=== PATIENT | male | born 2000 | race Hispanic/Latino ===

== ENCOUNTER 2020-04-10 17:37 | Emergency (ER) | payer OTHER ==
[~2020-04-10] VITALS: Ht 172.7 cm; Wt 85.7 kg
[2020-04-10] MEDS ORDERED: LORazepam 2 MG/ML VIAL IM ONE (18:30)
[2020-04-10] MEDS ORDERED: HALOPERIDOL 5MG/ML VIAL (J1630 PER 1) IM ONE (18:30)
[2020-04-10 20:16] LABS: HEMATOCRIT 46.5 % (42.0-52.0); HEMOGLOBIN 15.2 g/dl (13.5-17.5); MEAN CORPUSCULAR HGB CONC 32.7 g/dl (32.0-36.5); MEAN CORPUSCULAR VOLUME 91.9 fl (80.0-96.0); PLATELET COUNT, AUTOMATED 206 10^3/uL (150-450); RED BLOOD COUNT 5.06 10^6/uL (4.30-6.10)
[2020-04-10 21:04] LABS: ACETAMINOPHEN LEVEL < 2.0 UG/ML (10.0-30.0); ALBUMIN 4.4 GM/DL (3.2-5.2); ALT/SGPT 21 U/L (12-78); BILIRUBIN,DIRECT 0.3 MG/DL (0.0-0.2); BILIRUBIN,TOTAL 1.1 MG/DL (0.2-1.0); BLOOD UREA NITROGEN 14 MG/DL (7-18); CALCIUM LEVEL 9.2 MG/DL (8.5-10.1); CARBON DIOXIDE LEVEL 27 MEQ/L (21-32); CHLORIDE LEVEL 107 MEQ/L (98-107); CREATININE FOR GFR 1.03 MG/DL (0.70-1.30); ETHYL ALCOHOL (ETHANOL) < 0.003 % (0.000-0.010); GLUCOSE, FASTING 108 MG/DL (70-100); SALICYLATE LEVEL < 1.7 MG/DL (5.0-30.0); SODIUM LEVEL 142 MEQ/L (136-145); TOTAL PROTEIN 7.1 GM/DL (6.4-8.2)
[2020-04-10 22:20] LABS: AMPHETAMINES LEVEL URINE NEGATIVE (NEGATIVE); BARBITURATES URINE NEGATIVE (NEGATIVE); BENZODIAZEPINES URINE NEGATIVE (NEGATIVE); CANNABINOIDS URINE NEGATIVE (NEGATIVE); COCAINE METABOLITE URINE NEGATIVE (NEGATIVE); METHADONE URINE NEGATIVE (NEGATIVE); OPIATES URINE NEGATIVE (NEGATIVE); PHENCYCLIDINE URINE NEGATIVE (NEGATIVE)
[2020-04-11 02:53] VITALS: BP 139/92
== END 2020-04-11 03:01 | disposition home or self-care (01) ==
LOC: M ED 17:37
DX: F43.0 Acute stress reaction (principal); F33.9 Major depressive disorder, recurrent, unspecified
CPT/HCPCS: 80048; 80076; 80307; 84443; 85027; 96372; 99285; G0480; J1630; J2060

== ENCOUNTER 2020-06-14 16:45 | Inpatient (IN) | payer OTHER ==
[~2020-06-14] VITALS: Ht 175.3 cm; Wt 74.3 kg
[2020-06-14 18:02] LABS: HEMATOCRIT 45.2 % (42.0-52.0); HEMOGLOBIN 15.2 g/dl (13.5-17.5); MEAN CORPUSCULAR HEMOGLOBIN 30.5 pg (27.0-33.0); MEAN CORPUSCULAR HGB CONC 33.6 g/dl (32.0-36.5); MEAN CORPUSCULAR VOLUME 90.8 fl (80.0-96.0); PLATELET COUNT, AUTOMATED 237 10^3/uL (150-450); RED BLOOD COUNT 4.98 10^6/uL (4.30-6.10); WHITE BLOOD COUNT 7.7 10^3/uL (4.0-10.0)
[2020-06-14 18:26] LABS: ACETAMINOPHEN LEVEL < 2.0 UG/ML (10.0-30.0); ALBUMIN 4.4 GM/DL (3.2-5.2); ALT/SGPT 20 U/L (12-78); BILIRUBIN,DIRECT 0.3 MG/DL (0.0-0.2); BILIRUBIN,TOTAL 0.9 MG/DL (0.2-1.0); BLOOD UREA NITROGEN 11 MG/DL (7-18); CARBON DIOXIDE LEVEL 27 MEQ/L (21-32); CHLORIDE LEVEL 108 MEQ/L (98-107); CREATININE FOR GFR 0.74 MG/DL (0.70-1.30); ETHYL ALCOHOL (ETHANOL) < 0.003 % (0.000-0.010); GLOMERULAR FILTRATION RATE > 60.0 (>60); GLUCOSE, FASTING 131 MG/DL (70-100); SALICYLATE LEVEL < 1.7 MG/DL (5.0-30.0); SODIUM LEVEL 142 MEQ/L (136-145); TOTAL PROTEIN 7.2 GM/DL (6.4-8.2)
[2020-06-14 18:37] LABS: AMPHETAMINES LEVEL URINE NEGATIVE (NEGATIVE); BARBITURATES URINE NEGATIVE (NEGATIVE); BENZODIAZEPINES URINE NEGATIVE (NEGATIVE); CANNABINOIDS URINE NEGATIVE (NEGATIVE); COCAINE METABOLITE URINE NEGATIVE (NEGATIVE); METHADONE URINE NEGATIVE (NEGATIVE); OPIATES URINE NEGATIVE (NEGATIVE); PHENCYCLIDINE URINE NEGATIVE (NEGATIVE)
[2020-06-14] MEDS ORDERED: MAALOX 30 ML SUSP *UDC PO PRN (21:30)
[2020-06-14] MEDS ORDERED: MOM 30ML SUSPENSION UDC PO PRN (21:30)
[2020-06-14] MEDS ORDERED: traZODone 50 MG TAB PO PRN (21:30)
[2020-06-14] MEDS ORDERED: ACETAMINOPHEN TAB 650MG DOSE (2X325MG) PO PRN (21:30)
[2020-06-14] MEDS ORDERED: OLANZapine ORAL DISINTEGRATING TAB 5MG PO PRN (22:50)
[2020-06-14 22:54] LABS: RSV AMPLIFICATION NEGATIVE (NEGATIVE)
[2020-06-14 23:17] VITALS: BP 119/70
--- NOTE | 2020-06-15 08:50 | MHHPEPDOC ---
General Date Of Admission: Jun 15, 2020 Legal Status: 9.39 Chief Complaint Patient states she does not know why he is here " History of Present Illness HISTORY OF THE PRESENT ILLNESS: Patient is a 20 -year-old , male * Per Cpt. Ashwood- [phone](pt. Co. Commander)reports that pt. has been decompensating, behaviors have been coninueing to escalate and that they are trying to get pt the help that he needs. She reports that pt. has been religiously preoccupied, stating to KAREN "I don't work for you,I work for God." and "I can't let the devil take what I've earned." Pt. was on quarentine until 4 days ago, after he was on leave,visiting family(grandfathers ) in [place]. During the last 4 days, pt has refused to go to work, refusing to listen to orders. Pt. stated"I forgive you" and when asked for what he replied,"You know what you did." KAREN reports pt. has been accepted into the [facility] for out-processing due to the MH issues. KAREN reports that pt sister had concerns regarding pt thoughts and behaviors when he was on leave, visiting her. Sister told KAREN that pt was religiously preoccupied and at one point pushed her when he was talking about God. Pt. roommate in [place] has decided to stay with a friend somewhere because of pt. bizzare talk. KAREN reports that pt. pschotic symptoms had started end of 2019 but have been escalating and there is concern for others safety. * Pt. reports he does not know why he was brought to ER. He is A+O. He denies SI/HI. He denies AH/VH. He is pleasant,cooperative. He does appear guarded in his answers, mainly yes and no answers, does not offer extra insight or answers to why he could have been brought to ER. He reports he has no disrespect for anyone, has had no issues at work and states he has been going to work and completing his duties as he is asked to do. 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 He denies any MH issues. Denies depression/anxiety. "Out of nowhere they came and took me" this 20-year-old single male, lives at [facility]. He has been in the army for 2-1/2-3 years. He was born in [place], his father and mother are alive and living in [place] and he has one sister. His medical history is negative. His surgical history is negative. His neurological history is negative. He denies alcohol use. He denies drug use. His legal history is negative. He denies any abuse. He has never been hospitalized psychiatrically. He said no. Psychiatric outpatient care. He denies any serious problems in his childhood. For leisure. He likes to play basketball and video games. He states my complaint and was following me for no reason.". They called the police. Recently, his grandfather had and he was on an emergency leave for 32 days. He has been accepted in the [facility] for out process. He presently denies hallucinations, delusions, obsessions, compulsions or phobias Psychiatric Review of Systems Depression (2 or more weeks): denies Eve (4 or more days of): denies Psychosis: delusions PTSD: denies Anxiety: situational anxiety Past Psychiatric History Previous Psychiatric Diagnosis: None. Previous Psychiatric Admissions:. None. Suicide Attempts:. None. Psychiatric Follow-up:. None. Psychiatric medications:. None. Past Medical History Head Injury: No Seizures: No Hospitalizations: No Surgeries: No Family Medical/Psychiatric HX Psychiatric Disorders: No Addiction: No Suicide Attemps/Completions: No Addiction History denies Social History Childhood: Denies problems. Abuse/Trauma:. Denies abuse. [place] Education: High school. 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 Social Support: Parents in [place]. Legal:, None. Marital:, Single. Mental Status Examination General Appearance: well groomed Build: average Demeanor: average Eye Contact: average Activity: average Behavior: cooperative Speech: clear Mood: euthymic Affect: full Thought Process: logical/linear Thought Content (Delusions): bizarre, denies SI, HI, AVH, delusions Thought Content (Other): guarded Thought Content (Aggressive): none reported Perception (Hallucinations): none reported Cognition (Impairment of): none reported Cognition(Intelligence Est.): average Oriented: Awake, Alert, Oriented times three Insight: poor Judgment: Poor Psychosis: Denies Diagnoses Rule Out Acute Psychotic Episode A-FIB/CHADSVASC A-FIB History Current/History of A-Fib/PAF?: No Age/Risk Factor Scoring CHADSVASC: CHADSVASC Response (Comments) Value Age Risk Factor Age < 65 years old 0 Gender Risk Factor Male 0 Hx of CHF No 0 Hx of HTN No 0 Hx of Stroke/TIA/or VTE No 0 Hx of Diabetes No 0 Hx of Vascular Disease No 0 Total 0 Treatment Treatment ordered: NONE Initial Treatment Plan 1. Patient was admitted on a [9.39] status. 2. Complete history was obtained. 3. With patients permission, family will be contacted and database will be expanded. 4. Patients medication regimen will be reviewed and changed accordingly. 5. Patient will be provided with protected environment. 6. Patient will be treated with individual, group, and milieu therapies. 7. Patient will receive supportive psych-education. 8. Discharge planning will commence immediately. 9. Outpatient follow-up treatment will be strongly recommended. 10. The initial treatment plan will focus initially on: * Depression. * Risk for suicide. ESTIMATED LENGTH OF STAY: - DAYS. TIME SPENT COUNSELING AND COORDINATING INITIAL CARE: minutes. N/A-No Antipsychotics Vital Signs Vital Signs Date Time Temp Pulse Resp B/P (MAP) Pulse Ox O2 Delivery O2 Flow Rate FiO2 06/14/20 23:17 97.7 64 18 119/70 (86) 100 Room Air Laboratory Data 24H Labs Laboratory Tests 2 06/14/20 17:33: Nucleated Red Blood Cells % (auto) 0.0, Anion Gap 7L, Glomerular Filtration Rate > 60.0, Calcium Level 9.0, Total Bilirubin 0.9, Direct Bilirubin 0.3H, Aspartate Amino Transf (AST/SGOT) 10, Alanine Aminotransferase (ALT/SGPT) 20, Alkaline Phosphatase 103, Total Protein 7.2, Albumin 4.4, Albumin/Globulin Ratio 1.6, Thyroid Stimulating Hormone (TSH) 0.650, Salicylates Level < 1.7L, Acetaminophen Level < 2.0L, Ethyl Alcohol Level < 0.003 06/14/20 18:02: Urine Opiates Screen NEGATIVE, Urine Methadone Screen NEGATIVE, Urine Barbiturates Screen NEGATIVE, Urine Phencyclidine Screen NEGATIVE, Urine Amphetamines Screen NEGATIVE, Urine Benzodiazepines Screen NEGATIVE, Urine Cocaine Metabolite Screen NEGATIVE, Urine Cannabinoids Screen NEGATIVE 06/14/20 21:23: Coronavirus (COVID-19)(PCR) NEGATIVE, Influenza Type A (RT-PCR) NEGATIVE, Influenza Type B (RT-PCR) NEGATIVE, Respiratory Syncytial Virus (PCR) NEGATIVE CBC/BMP Laboratory Tests 06/14/20 17:33 Medications No Active Prescriptions or Reported Meds Allergies Coded Allergies: No Known Allergies (Verified Allergy, Unknown, 06/14/20) DOROTHEA LEÓN MD Jun 15, 2020 08:50
[2020-06-15] MEDS: NICOTINE 21MG/24HR 1 EA TRANSDERMAL TD SCH (09:00)
--- NOTE | 2020-06-15 15:52 | REPVR ---
PROCEDURE INFORMATION: Exam: MR Head Without Contrast Exam date and time: 06/15/2020 2:42 PM Age: 20 years old Clinical indication: Altered mental status/memory loss; Other: Sudden unexplained change in mental status TECHNIQUE: Imaging protocol: MR of the head without contrast. COMPARISON: No relevant prior studies available. FINDINGS: Brain: No acute infarct or postictal signal changes identified on the diffusion-weighted imaging. No evidence of brain parenchymal edema or intracranial mass effect. No significant white matter disease. No parenchymal hemorrhage. Cerebral ventricles: Normal. No ventriculomegaly. Bones/joints: Unremarkable. Paranasal sinuses: Retention cysts or polyps in the inferior maxillary sinuses. Trace ethmoid mucosal thickening. No air-fluid levels. Mastoid air cells: Normal as visualized. No mastoid effusion. Orbital cavity: Unremarkable. Soft tissues: Unremarkable. IMPRESSION: No acute intracranial abnormality. Electronically signed by: Gaby Parson On 06/15/2020 15:51:53 PM
[2020-06-15 16:44] VITALS: BP 109/56
[2020-06-15] MEDS: PALIPERIDONE 3 MG ER TAB (INVEGA) PO SCH (21:19)
[2020-06-16 06:46] VITALS: BP 119/57
--- NOTE | 2020-06-16 06:49 | HPEPDOC ---
General Date of Admission Jun 14, 2020 at 22:03 Date of Service: Jun 16, 2020 Chief Complaint The patient is a 20-year-old male admitted with a reason for visit of Unspecified Psychotic Do. 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 I am seeing the patietn for medical history and physical. Patient does not offer any complaints today. He did have an MRI brain yesterday for sudden memory loss and altered mental status. today he is alert oriented and gives appropriate history. 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 Surgical History None Family History Significant Family History: No pertinent family hx discussed with the patient Social History * Smoker: other (vape sometimes) Alcohol: occationally (1-2 times/ month) Drugs: denies A-FIB/CHADSVASC A-FIB History Current/History of A-Fib/PAF?: No Review of Systems Constitutional: Denies: Chills, Fever, Night Sweats Eyes: Denies: Pain, Vision change ENT: Denies: Head Aches, Ear Pain, Dysphagia Skin: Denies: Rash, Lesions, Breakdown Pulmonary: Denies: Dyspnea, Cough Cardiovascular: Denies: Chest Pain, Palpitations, Orthopnea, Paroxysmal Noc. Dyspnea, Lt Headedness Gastrointestinal: Denies: Nausea, Vomiting, Abdominal Pain, Diarrhea Genitourinary: Denies: Dysuria, Frequency, Incontinence, Retention Hematologic: Denies: Bruising, Bleeding Excessively Musculoskeletal: Denies: Neck Pain, Back Pain, Joint Pain, Muscle Pain, Spasms Neurological: Denies: Weakness, Numbness, Change in speech, Confusion Psych: Reports: Mood Normal Physical Examination General Exam: Positive: Alert, Cooperative, No Acute Distress Eye Exam: Positive: PERRLA, Conjunctiva & lids normal, EOMI; Negative: Sclera icteric ENT Exam: Positive: Atraumatic, Mucous membr. 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 I am seeing the patient for medical history and physical. Psychosis / depression as per psychiatry No active medical issues at this time. 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 Plan / VTE VTE Prophylaxis Ordered?: No (freely ambulatory) LYNDA HAYDEN MD Jun 16, 2020 06:49
[2020-06-16] MEDS: NICOTINE 21MG/24HR 1 EA TRANSDERMAL TD SCH (08:45)
[2020-06-16 17:51] VITALS: BP 100/60
[2020-06-16] MEDS: PALIPERIDONE 3 MG ER TAB (INVEGA) PO SCH (21:54)
[2020-06-17 06:49] VITALS: BP 101/51
[2020-06-17] MEDS: NICOTINE 21MG/24HR 1 EA TRANSDERMAL TD SCH (09:00)
--- NOTE | 2020-06-17 11:09 | MHIPN ---
[facility] PROGRESS NOTE DATE: 06/16/2020 The patient today states that he is doing good. He is still not sure why he is in the hospital. I tried to point out that the report said that he was not doing his job and the patient was noted to be very religiously preoccupied, but he is guarded about this at this point. MENTAL STATUS EXAMINATION: He is alert and oriented times three. Eye contact is good. There is no formal thought disorder noted. He says his mood is good. His affect is flat. He is denying everything but it appears that he is having grandiose delusions. He denies suicidal or homicidal ideation. Concentration fair. Memory intact. Insight and judgment is poor. DIAGNOSIS: Other specified psychotic disorder. TREATMENT PLAN: At this point, we will continue to monitor the patient for continued resolution of psychotic symptoms and continue to titrate his medications as indicated. It looks like his Prozac was increased.
[2020-06-17 17:28] VITALS: BP 129/65
[2020-06-17] MEDS: PALIPERIDONE 3 MG ER TAB (INVEGA) PO SCH (21:01)
[2020-06-18 06:34] VITALS: BP 100/64
[2020-06-18] MEDS: NICOTINE 21MG/24HR 1 EA TRANSDERMAL TD SCH (09:00)
[2020-06-18 16:38] VITALS: BP 128/61
[2020-06-18] MEDS: PALIPERIDONE 3 MG ER TAB (INVEGA) PO SCH (20:57)
[2020-06-19 06:29] VITALS: BP 108/51
[2020-06-19] MEDS: NICOTINE 21MG/24HR 1 EA TRANSDERMAL TD SCH (09:00)
--- NOTE | 2020-06-19 09:50 | MHIPN ---
PROGRESS NOTE DATE: 06/18/2020 SUBJECTIVE: I am still depressed and I've been not doing well for the last six months. 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 He continues to have some agitation and currently depressed. MENTAL STATUS EXAMINATION: Well groomed. Cooperative. Made good eye contact. Speech is somewhat guarded. Affect is constricted. Mood is depressed. Thought process linear, goal directed. Thought content; denies any delusions, however, he is guarded. Denied any hallucinations. Currently denies any suicidal or homicidal thoughts. His insight and judgment are poor. 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 Vital signs: Temperature 98.3, pulse 54, respiratory rate 16, blood pressure 128/61. Labs: CBC within normal limits. CMP within normal limits. Glucose is slightly higher. ASSESSMENT: Patient continues to be depressed. PLAN: Continue current medications. ESTIMATED LENGTH OF STAY: 4 to 5 days.
[2020-06-19 16:35] VITALS: BP 132/59
--- NOTE | 2020-06-19 17:10 | MHIPN ---
[facility] PROGRESS NOTE DATE: 06/17/2020 The patient tells me, "I'm doing very well." He says that he slept good last night. He told me that he is writing down his goals. When I asked him what specific goals, he said "educational goals." He still has no insight about the events prior to admission and cannot understand why he is in the hospital at all. MENTAL STATUS EXAMINATION: This patient is alert and oriented times three. Eye contact is fair. Psychomotor activity is normal. The patient is guarded. There is no formal thought disorder. He says his mood is good. His affect is appropriate to mood. He seems to be acutely psychotic. He is denying suicidal or homicidal ideations. Concentration is fair. Memory intact. Insight and judgment poor. DIAGNOSIS: Unspecified psychotic disorder. TREATMENT PLAN: We will continue to monitor the patient for his psychotic symptoms and resolution of these symptoms, and we will titrate medication as indicated.
[2020-06-19] MEDS: PALIPERIDONE 3 MG ER TAB (INVEGA) PO SCH (21:16)
--- NOTE | 2020-06-19 22:33 | MHIPN ---
PROGRESS NOTE DATE: 06/19/2020 SUBJECTIVE: I'm feeling fine. I'm getting good sleep. I don't hear voices. OBJECTIVE: He is a 20-year-old male from [place], who was admitted because of auditory hallucinations and bizarre behavior. Currently patient is doing well. His sleep and appetite are good. Denies any hallucinations. MENTAL STATUS EXAMINATION: Appearance: Casually dressed, cooperative. Made good eye contact. Mood: Euthymic. Affect: Full range. Speech: Rate, rhythm, volume are good. Thought process: Linear, goal directed. Thought content: Denied any suicidal or homicidal ideas. Insight and judgment are fair. Alert and oriented to time, place and person. Memory; remote, recent and immediate are good. Vital Signs: Temperature 97.0, pulse 56, respiratory rate 18, blood pressure 132/59, pulse oximetry 98%. Labs: CBC within normal limits. CMP within normal limits. Toxicology: Negative. DIAGNOSIS: Psychotic disorder NOS. PLAN: Continue current medications. Discharge tomorrow. TIME SPENT ON EVALUATION: 25 minutes.
[2020-06-20 06:37] VITALS: BP 117/56
[2020-06-20] MEDS: NICOTINE 21MG/24HR 1 EA TRANSDERMAL TD SCH (08:05)
[2020-06-20] MEDS ORDERED: PALI1TAB2 PO (12:01)
[2020-06-20] MEDS ORDERED: TRAZ-252 PO (12:01)
--- NOTE | 2020-06-20 13:01 | MHDS ---
[facility] DISCHARGE SUMMARY DATE OF ADMISSION: 06/14/2020 DATE OF DISCHARGE: 06/20/2020 DIAGNOSIS: Psychotic disorder, unspecified. IDENTIFYING DATA: He is a 20-year-old male from [place], was admitted because of auditory hallucination and bizarre behavior with some alevism preoccupation. For details of history of present illness, past psychiatric history, past medical history, substance abuse history, personal history, please refer to the initial evaluation. COURSE IN THE HOSPITAL: Patient initially was behaving bizarre, staying in his room, with increase in religiosity. Patient was placed on paliperidone and he was also provided with individual, group and milieu therapy. Patient made a gradual recover. His psychosis resolved and he started attending groups. He slept better, denied any side effects from the medications, denied any suicidal or homicidal ideas. He was stable at the time of discharge. MENTAL STATUS EXAMINATION: Casually dressed, cooperative. Made good eye contact. Speech rate and volume are good. Mood is euthymic. Affect is appropriate for mood. Thought process: Linear and goal-directed. Thought content: Denied any suicidal or homicidal ideas. He denied any auditory or visual hallucinations. Insight and judgment are fair. Memory, immediate, remote, recent, are good. VITAL SIGNS: Temperature 99.3, pulse 53, respiratory rate 16, blood pressure 117/56, pulse oximetry 99. LABORATORY DATA: CBC within normal limits. Chemistry: CMP within normal limits. Toxicology was negative. DISCHARGE MEDICATIONS: - paliperidone 3 mg at night - trazodone 50 mg at bedtime as needed. DISPOSITION: Patient will be discharged to [place]. TIME SPENT: Less than 30 minutes.
== END 2020-06-20 13:45 | disposition home or self-care (01) | DRG 885 ==
LOC: M ED 16:45 → M ED INP 22:03 → M PSY 23:07
PROVIDERS: ADMIT Psychiatry & Neurology Child & Adolescent Psychiatry; ATTEND Psychiatry & Neurology Psychiatry
DX: F29 Unspecified psychosis not due to a substance or known physiological condition (principal)

== ENCOUNTER 2020-07-27 11:53 | Inpatient (IN) | payer OTHER ==
[~2020-07-27] VITALS: Ht 177.8 cm; Wt 74.1 kg
[~2020-07-27 11:53] MED LIST: PALI1TAB2 PO; TRAZ-252 PO
[2020-07-27 12:50] LABS: HEMATOCRIT 48.3 % (42.0-52.0); HEMOGLOBIN 15.9 g/dl (13.5-17.5); MEAN CORPUSCULAR HEMOGLOBIN 30.3 pg (27.0-33.0); MEAN CORPUSCULAR HGB CONC 32.9 g/dl (32.0-36.5); PLATELET COUNT, AUTOMATED 231 10^3/uL (150-450); RED BLOOD COUNT 5.25 10^6/uL (4.30-6.10); WHITE BLOOD COUNT 5.7 10^3/uL (4.0-10.0)
[2020-07-27 13:22] LABS: ACETAMINOPHEN LEVEL < 2.0 UG/ML (10.0-30.0); ALBUMIN 4.6 GM/DL (3.2-5.2); ALT/SGPT 29 U/L (12-78); BILIRUBIN,DIRECT 0.4 MG/DL (0.0-0.2); BLOOD UREA NITROGEN 12 MG/DL (7-18); CALCIUM LEVEL 9.5 MG/DL (8.5-10.1); CARBON DIOXIDE LEVEL 29 MEQ/L (21-32); CHLORIDE LEVEL 100 MEQ/L (98-107); CREATININE FOR GFR 0.86 MG/DL (0.70-1.30); ETHYL ALCOHOL (ETHANOL) < 0.003 % (0.000-0.010); GLOMERULAR FILTRATION RATE > 60.0 (>60); GLUCOSE, FASTING 94 MG/DL (70-100); POTASSIUM SERUM 4.7 MEQ/L (3.5-5.1); SALICYLATE LEVEL < 1.7 MG/DL (5.0-30.0); SODIUM LEVEL 135 MEQ/L (136-145); TOTAL PROTEIN 7.9 GM/DL (6.4-8.2)
[2020-07-27 14:40] LABS: AMPHETAMINES LEVEL URINE NEGATIVE (NEGATIVE); BARBITURATES URINE NEGATIVE (NEGATIVE); BENZODIAZEPINES URINE NEGATIVE (NEGATIVE); CANNABINOIDS URINE NEGATIVE (NEGATIVE); COCAINE METABOLITE URINE NEGATIVE (NEGATIVE); METHADONE URINE NEGATIVE (NEGATIVE); OPIATES URINE NEGATIVE (NEGATIVE); PHENCYCLIDINE URINE NEGATIVE (NEGATIVE)
[2020-07-27] MEDS ORDERED: MOM 30ML SUSPENSION UDC PO PRN (16:20)
[2020-07-27] MEDS ORDERED: MAALOX 30 ML SUSP *UDC PO PRN (16:20)
[2020-07-27] MEDS ORDERED: OLANZapine ORAL DISINTEGRATING TAB 5MG PO PRN (16:20)
[2020-07-27] MEDS ORDERED: ACETAMINOPHEN TAB 650MG DOSE (2X325MG) PO PRN (16:20)
[2020-07-27] MEDS: NICOTINE 21MG/24HR 1 EA TRANSDERMAL TD SCH (16:30)
[2020-07-27 17:38] LABS: RSV AMPLIFICATION NEGATIVE (NEGATIVE)
[2020-07-27] MEDS: PALIPERIDONE 3 MG ER TAB (INVEGA) PO SCH (20:44)
[2020-07-28 06:38] VITALS: BP 118/56
[2020-07-28] MEDS: NICOTINE 21MG/24HR 1 EA TRANSDERMAL TD SCH (09:00)
[2020-07-28] MEDS ORDERED: NICOTINE 21MG/24HR 1 EA TRANSDERMAL TD ONE (09:00)
--- NOTE | 2020-07-28 11:36 | HPEPDOC ---
[facility] Medical History & Physical Date of Admission July 28, 2020 Date of Service: July 28, 2020 Attending Physician: Yoselin Schwartz MD History and Physical MEDICAL H&P HISTORY OF PRESENT ILLNESS: Patient is a 20-year-old male with past medical history of delusional disorder (recent [facility] admission 06/14-) who was admitted on 07/27/2020 again to [facility] for unspecified psychotic disorder after having suicidal ideations and threatening to kill someone in his work place. The patient displayed increased paranoia, was guarded and talking in circles. He is also noted to have had some spiritism preoccupation in the past. He has a recent [facility] hospitalization for delusional disorder. The patient feels as though there is some not to get him in his workplace and during interview today the patient stated that "me being in here is depriving people of my presence" when asked to clarify he said "people need me to be out." I asked him if this meant that financially people depend on him and he said no just "in general". The patient denies current suicidal or homicidal ideations, depression, tearfulness, paranoia, sleep deprivation, poor appetite. He also denies shortness of breath, chest pain, fevers, chills, nausea, vomiting, abdominal pain. REVIEW OF SYSTEMS: Neg except what is mentioned above PAST MEDICAL HISTORY: Hx of nicotine, hx of vaping Hx of delusions, delusional d/o with recent [facility] admission 05/2020 PAST SURGICAL HISTORY: None FAMILY HISTORY: Father: None. Alive Mother: None. Alive SOCIAL HISTORY: Brief history of vaping, no longer uses nicotine/tobacco. No prior cigarette history. Denies alcohol or drug use. Full code. Active duty soldier ALLERGIES: Please see below. HOME MEDICATIONS: Please see below. PHYSICAL EXAMINATION: VS: please see below CONSTITUTIONAL: No acute distress, resting comfortably, AAO x 3 EYES: PERRLA, EOM intact HENT, MOUTH: Normocephalic, atraumatic, moist mucous membranes NECK: SUPPLE, no JVD, no lymphadenopathy, no carotid bruit CV: Regular rate and rhythm, S1S2 normal, no murmurs/rubs/gallops RESPIRATORY: Clear to auscultation bilaterally, no rales/rhonchi/wheezes GI: BS positive in 4 quadrants, soft, nontender, nondistended, no rebound or guarding, no organomegaly : Deferred MUSCULOSKELETAL: Normal ROM. No cyanosis, clubbing, swelling, joint deformity, extremity edema INTEGUMENTARY: Intact, no rashes, no lesions, no erythema NEUROLOGIC: Cranial Nerves II-XII are intact, no focal deficits PSYCHIATRIC: Mood and affect are normal LABORATORY DATA: Please see below IMAGING: None ASSESSMENT: 20-year-old male admitted to [facility] for unspecified psychotic disorder. PLAN: Unspecified psychotic d/p, suicidal ideation on admission -Plan per psych Hx of delusional disorder -Plan per psych DISPOSITION: Thank you kindly for this consult. At this time will sign off but if we are needed again, please do not hesitate to reconsult. Vital Signs Vital Signs Date Time Temp Pulse Resp B/P (MAP) Pulse Ox O2 Delivery O2 Flow Rate FiO2 07/28/20 06:38 98.4 56 16 118/56 (76) 98 Room Air Laboratory Data Labs 24H Laboratory Tests 2 07/27/20 12:31: Nucleated Red Blood Cells % (auto) 0.0, Anion Gap 6L, Glomerular Filtration Rate > 60.0, Calcium Level 9.5, Total Bilirubin 2.0H, Direct Bilirubin 0.4H, Aspar fuller Amino Transf (AST/SGOT) 15, Alanine Aminotransferase (ALT/SGPT) 29, Alkaline Phosphatase 103, Total Protein 7.9, Albumin 4.6, Albumin/Globulin Ratio 1.4, Thyroid Stimulating Hormone (TSH) 1.090, Salicylates Level < 1.7L, Acetaminophen Level < 2.0L, Ethyl Alcohol Level < 0.003 07/27/20 14:03: Urine Opiates Screen NEGATIVE, Urine Methadone Screen NEGATIVE, Urine Barbiturates Screen NEGATIVE, Urine Phencyclidine Screen NEGATIVE, Urine Amphetamines Screen NEGATIVE, Urine Benzodiazepines Screen NEGATIVE, Urine Cocaine Metabolite Screen NEGATIVE, Urine Cannabinoids Screen NEGATIVE 07/27/20 16:41: Coronavirus (COVID-19)(PCR) NEGATIVE, Influenza Type A (RT-PCR) NEGATIVE, Influenza Type B (RT-PCR) NEGATIVE, Respiratory Syncytial Virus (PCR) NEGATIVE CBC/BMP Laboratory Tests 07/27/20 12:31 Home Medications No Active Prescriptions or Reported Meds Allergies Coded Allergies: No Known Allergies (Verified Allergy, Unknown, 3/25/21) A-FIB/CHADSVASC A-FIB History Current/History of A-Fib/PAF?: No Current PO Anticoag Therapy: No Age/Risk Factor Scoring CHADSVASC: CHADSVASC Response (Comments) Value Age Risk Factor Age < 65 years old 0 Gender Risk Factor Male 0 Hx of CHF No 0 Hx of HTN No 0 Hx of Stroke/TIA/or VTE No 0 Hx of Diabetes No 0 Hx of Vascular Disease No 0 Total 0 Treatment Treatment ordered: NONE Other anticoagulant ordered: none Yoselin Schwartz MD July 28, 2020 11:36
[2020-07-28 17:44] VITALS: BP 125/60
--- NOTE | 2020-07-28 21:18 | MHHPEPDOC ---
General Date Of Admission: July 27, 2020 Legal Status: 9.39 Chief Complaint Psychosis History of Present Illness HISTORY OF THE PRESENT ILLNESS: Patient is a 20 -year-old , male, who, according to ED reports: "When pt first arrived at [facility] he asked the security aide if the cameras were brain scanners. Pt also was unable to give a urine sample and in turn was very focused on drinking water. Pt probably drank roughly 1/2 gallon of water to give one urine sample. Once pt gave a urine sample pt stopped obsessing over water. Pt seems to be very paranoid and guarded with his answers. Pt is very difficult to follow and talks in circles. Pt reports that earlier today he mis sed [facility], would not disclose to tw why and when asked pt states "the why is not important". Pt reports that he later arrived at [facility] and spoke with Clifford Garrison; pt again will not disclose what this conversation entailed. Pt reports that he told several people "have a good day and I went back to my room and now I am here". Pt also looked over all the notes tw was writing due to paranoia. Pt is having a difficult time relaxing and in turn either stands at the door or sits on the very edge of the bed. Pt reports that he did nothing to het here and that people are just out to get him. Pt denies SI/HI/Self Inj/AH/VH. Pt reports having a good appetite and sleep. Captain Florez whom is a nurse on pts current [place] unit reports that pt recently moved from another unit to this unit. Gautam states that pt was very religiously preoccupied in other unit and had many red flags therefore; pt was switched to a more controlled environment. Gautam also report that the has diagnosed him with psychosis however; tw has no other information regarding this diagnosis. Gautam states that earlier today pt had been pushing his limits had gone to [facility] and was disheveled, unshaven and hair was not at the required length. Gautam reports that after formation pt went back to the unit and started making comments that were threatening in nature saying to his Platoon Sgt "I just want to end you". Per Gautam pt proceeded down the [facility]chell where all the nurses were and stated "I just want to end this all. I hope you all have a nice weekend it was nice knowing you". Per Gautam pt then eloped from the unit running and was later tackled by law enforcement. Pt had denied what he said and now believes he is at [facility] because, he told people to "have a nice weekend". Clifford Garrison called tw and reports that she has been worried that this pt is decompensating. Bladimir reports that there haven several red flags in the last few days and that paranoia is on the top of the list. Bladimir reports that pt is convinced that Sgt Kilgore is out to get him and is mad because, he hasn't shaved or cut his hair for formation. Bladimir reports that he did not fill the prescription from the last visit at [facility] therefore he has not been compliant with his medications. Captguzman Hauser, Pts KAREN - [phone]." Psychiatric Review of Systems Depression (2 or more weeks): denies Eve (4 or more days of): denies Psychosis: paranoia, other (He says he wants to help other human beings, like creating an organization that would help the Veterans. He says by the end of this year, he could possibly would be able to do it. ) PTSD: denies Anxiety: situational anxiety, panic attacks Anxiety/ 6 months or more of: other (dnies, minimizesp) Past Psychiatric History Previous Psychiatric Diagnosis: He denies psychiatric diagnoses, he says he is nota adamson of them Previous Psychiatric Admissions: Was hospitalized at [facility] Suicide Attempts: Denies Psychiatric Follow-up: [facility] --- he says he has been attending his Therapy sessions, he says he goes because he wants to transition to Civilian life and he has been told he will need to keep going in order to be discharged from the [employer] Psychiatric medications: Has been non compliant with them Past Medical History Medical Problems Denies Head Injury: No Seizures: No Hospitalizations: Yes Surgeries: No Family Medical/Psychiatric HX Medical Problems Denies Psychiatric Disorders: No Addiction: No Suicide Attemps/Completions: No Addiction History alcohol (socially ) Social History Childhood: He says he was born and raised in [place]. He grew up with mom and dad, his parents are still alive and together. He has siblings, he reports a good relationship with them. Abuse/Trauma: Denies Current Living Situation: [employer], he lives in the [facility] Education: Has a HS diploma Employment: [employer]. Social Support: Family and friends Legal: He had a traffic ticket Marital: Single, he says he has a relationship but is "complicated" Mental Status Examination General Appearance: well groomed, appears stated age, hospital scubs/clothing Build: thin Demeanor: average Eye Contact: average Activity: average Behavior: cooperative Speech: clear, spontaneous, reg/rate,rhythm,volume Mood: euthymic Affect: appropriate, congruent Thought Process: logical/linear Thought Content (Delusions): other (The patient seems to be minimizing his symptoms. He has fixed ideas about helping other people, groups of people but he doesn't have the means to do it. Messianic delusions?) Thought Content (Other): preoccupied, appears paranoid Thought Content (Aggressive): none reported Perception (Hallucinations): none reported Perception (Other): none reported Cognition (Impairment of): none reported Cognition(Intelligence Est.): average Oriented: Awake, Alert, Oriented times three Insight: poor Judgment: Poor Psychosis: Other (altered thoughts) Diagnoses 1. Unspecified psychotic disorder A-FIB/CHADSVASC A-FIB History Current/History of A-Fib/PAF?: No Current PO Anticoag Therapy: No Age/Risk Factor Scoring CHADSVASC: CHADSVASC Response (Comments) Value Age Risk Factor Age < 65 years old 0 Gender Risk Factor Male 0 Hx of CHF No 0 Hx of HTN No 0 Hx of Stroke/TIA/or VTE No 0 Hx of Diabetes No 0 Hx of Vascular Disease No 0 Total 0 Treatment Treatment ordered: NONE Reason Anticoagulant not given: Not indicated/[id number] Assessment The patient was pleasant and cooperative, he was calm and cooperative. He was not guarded but he asked twice if the information he was sharing was going to remain confidential, between him and I. He seems to be religiously preoccupied, he wants to be the good doer, he wants to help others but he doesn't think about helping individually, he is interested in making big changes in society, like helping veterans but when I ask him how would he accomplish that, because he would need money to do it, he tells me he doesn't know how he would do it. On the other hand, he says he is at the Hospital because someone said lies about him, that he was in his room when some army fellows went to get him to bring him to the Emergency Room. He constantly says that it is their fault, that there's nothing with him. He is convinced they want to harm him Initial Treatment Plan 1. Patient was admitted on a [9.39] status. 2. Complete history was obtained. 3. With patients permission, family will be contacted and database will be expanded. 4. Patients medication regimen will be reviewed and changed accordingly. 5. Patient will be provided with protected environment. 6. Patient will be treated with individual, group, and milieu therapies. 7. Patient will receive supportive psych-education. 8. Discharge planning will commence immediately. 9. Outpatient follow-up treatment will be strongly recommended. 10. The initial treatment plan will focus initially on: * Altered thoughts * Risk for suicide. * Risk for harming others ESTIMATED LENGTH OF STAY: 5-7 DAYS. TIME SPENT COUNSELING AND COORDINATING INITIAL CARE: 60 minutes. Tobacco Cessation Screen If Patient is a Smoker NO Ordered/Pending Vital Signs Vital Signs Date Time Temp Pulse Resp B/P (MAP) Pulse Ox O2 Delivery O2 Flow Rate FiO2 07/28/20 06:38 98.4 56 16 118/56 (76) 98 Room Air Laboratory Data 24H Labs Laboratory Tests 2 07/27/20 12:31: Nucleated Red Blood Cells % (auto) 0.0, Anion Gap 6L, Glomerular Filtration Rate > 60.0, Calcium Level 9.5, Total Bilirubin 2.0H, Direct Bilirubin 0.4H, Aspartate Amino Transf (AST/SGOT) 15, Alanine Aminotransferase (ALT/SGPT) 29, Alkaline Phosphatase 103, Total Protein 7.9, Albumin 4.6, Albumin/Globulin Ratio 1.4, Thyroid Stimulating Hormone (TSH) 1.090, Salicylates Level < 1.7L, Acetaminophen Level < 2.0L, Ethyl Alcohol Level < 0.003 07/27/20 14:03: Urine Opiates Screen NEGATIVE, Urine Methadone Screen NEGATIVE, Urine Barbiturates Screen NEGATIVE, Urine Phencyclidine Screen NEGATIVE, Urine Amphetamines Screen NEGATIVE, Urine Benzodiazepines Screen NEGATIVE, Urine Cocaine Metabolite Screen NEGATIVE, Urine Cannabinoids Screen NEGATIVE 07/27/20 16:41: Coronavirus (COVID-19)(PCR) NEGATIVE, Influenza Type A (RT-PCR) NEGATIVE, Inf luenza Type B (RT-PCR) NEGATIVE, Respiratory Syncytial Virus (PCR) NEGATIVE CBC/BMP Laboratory Tests 07/27/20 12:31 Medications No Active Prescriptions or Reported Meds Allergies Coded Allergies: No Known Allergies (Verified Allergy, Unknown, 06/14/20) JUDY LEE MD July 28, 2020 11:51
[2020-07-29] MEDS: PALIPERIDONE 3 MG ER TAB (INVEGA) PO SCH ×2 (00:27→20:41)
[2020-07-29 05:34] VITALS: BP 110/59
[2020-07-29] MEDS: NICOTINE 21MG/24HR 1 EA TRANSDERMAL TD SCH (09:34)
--- NOTE | 2020-07-29 18:31 | MHIPNPDOC ---
[facility] Progress Note Progress Note DATE OF SERVICE: 07/29/20 HISTORY: As per ED report: "Patient is a 20 -year-old , male, who, according to ED reports: "When pt first arrived at [facility] he asked the security aide if the cameras were brain scanners. Pt also was unable to give a urine sample and in turn was very focused on drinking water. Pt probably drank roughly 1/2 gallon of water to give one urine sample. Once pt gave a urine sample pt stopped obsessing over water. Pt seems to be very paranoid and guarded with his answers. Pt is very difficult to follow and talks in circles. Pt reports that earlier today he missed [facility], would not disclose to tw why and when asked pt states "the why is not important". Pt reports that he later arrived at [facility] and spoke with Clifford Garrison; pt again will not disclose what this conversation entailed. Pt reports that he told several people "have a good day and I went back to my room and now I am here". Pt also looked over all the notes tw was writing due to paranoia. Pt is having a difficult time relaxing and in turn either stands at the door or sits on the very edge of the bed. Pt reports that he did nothing to het here and that people are just out to get him. Pt denies SI/HI/Self Inj/AH/VH. Pt reports having a good appetite and sleep. Captain Florez whom is a nurse on pts current [place] unit reports that pt recently moved from another unit to this unit. Gautam states that pt was very religiously preoccupied in other unit and had many red flags therefore; pt was switched to a more controlled environment. Gautam also report that the has diagnosed him with psychosis however; tw has no other information regarding this diagnosis. Gautam states that earlier today pt had been pushing his limits had gone to [facility] and was disheveled, unshaven and hair was not at the required length. Gautam reports that after formation pt went back to the unit and started making comments that were threatening in nature saying to his [employer] Sgt "I just want to end you". Nabil Florez pt proceeded down the [facility] where all the nurses were and stated "I just want to end this all. I hope you all have a nice weekend it was nice knowing you". Nabil Florez pt then eloped from the unit running and was later tackled by law enforcement. Pt had denied what he said and now believes he is at [facility] because, he told people to "have a nice weekend". Clifford Garrison called tw and reports that she has been worried that this pt is decompensating. Bladimir reports that there haven several red flags in the last few days and that paranoia is on the top of the list. Bladimir reports that pt is convinced that Sgt Kilgore is out to get him and is mad because, he hasn't shaved or cut his hair for formation. Bladimir reports that he did not fill the prescription from the last visit at [facility] therefore he has not been compliant with his medications." VITAL SIGNS: See below. NEW TEST RESULTS: See below CURRENT MEDICATIONS: See below. MENTAL STATUS EXAMINATION: General Appearance: well groomed, appears stated age, hospital scrubs/clothing Build: thin Demeanor: average Eye Contact: average Activity: average Behavior: cooperative Speech: clear, spontaneous, reg/rate,rhythm,volume Mood: anxious Affect: appropriate, congruent, anxious Thought Process: linear but not necessarily coherent Thought Content (Delusions): The patient has orthodox preoccupation, messianic delusions, paranoid delusions Thought Content (Other): preoccupied, appears paranoid Thought Content (Aggressive): none reported Perception (Hallucinations): The patient denies auditory, visual or tactile hallucinations. He is not responding to internal stimuli Perception (Other): none reported Cognition (Impairment of): none reported Cognition(Intelligence Est.): average Oriented: Awake, Alert, Oriented times three Insight: poor Judgment: Poor Psychosis: Other (altered thoughts) Diagnoses 1. Unspecified psychotic disorder ASSESSMENT: The patient continues to minimize his symptoms, he says that he has felt really well at the unit, that he is sleeping and eating right and reports that his mood has being stable. He adamantly denies suicidal or homicidal ideation, denies auditory visual and tactile hallucinations but he continues to focus on dedicating his life of service, to helping others and it seems like he will feel guilty because he says this is not the way he used to be, he says he used to be selfish but now he really wants to help others. He is worried about his discharge, he would like to be discharged [facility] and he fears it won't happen this way. He has not been aggressive, nor violent. He has not threatened anybody in the unit and he has not made any suicidal statements but he is psychotic. MANAGEMENT PLAN: Continue with current treatment plan TIME SPENT: 20 minutes. Vital Signs Vital Signs Date Time Temp Pulse Resp B/P (MAP) Pulse Ox O2 Delivery O2 Flow Rate FiO2 07/29/20 05:34 99.3 64 16 110/59 (76) 99 Room Air Current Medications Current Medications Medications (Trade) Dose Ordered Sig/Mariana Route PRN Reason Start Time Stop Time Status Last Admin Dose Admin Acetaminophen (Tylenol Tab) 650 mg Q6HP PRN PO HEADACHE or DISCOMFORT 07/27/20 16:20 Al Hydrox/Mg Hydrox/Simethicone (Mylanta) 30 ml Q4HP PRN PO HEARTBURN/INDIGESTION 07/27/20 16:20 Home Med (Med Rec Complete!) ASDIRECTED XX 07/27/20 18:00 07/27/20 17:57 DC Magnesium Hydroxide (Milk Of Magnesia) 30 ml DAILYPRN PRN PO CONSTIPATION 07/27/20 16:20 Nicotine (Nicoderm Cq 21mg) 1 patch DAILY TD 07/27/20 16:30 07/29/20 09:48 DC 07/29/20 09:34 Olanzapine (ZyPREXA ZYDIS) 5 mg Q4HP PRN PO AGITATION 07/27/20 16:20 Paliperidone (Invega) 3 mg QHS PO 07/27/20 21:00 07/27/20 20:44 Trazodone HCl (Desyrel) 50 mg QHSP PRN PO INSOMNIA 07/27/20 16:20 Allergies Coded Allergies: No Known Allergies (Verified Allergy, Unknown, 06/14/20) JUDY LEE MD July 29, 2020 18:23
[2020-07-30 07:00] VITALS: BP 125/60
--- NOTE | 2020-07-30 14:07 | MHIPNPDOC ---
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 According to ED reports: "When pt first arrived at [facility] he asked the security aide if the cameras were brain scanners. Pt also was unable to give a urine sample and in turn was very focused on drinking water. Pt probably drank roughly 1/2 gallon of water to give one urine sample. Once pt gave a urine sample pt stopped obsessing over water. Pt seems to be very paranoid and guarded with his answers. Pt is very difficult to follow and talks in circles. Pt reports that earlier today he missed [facility], would not disclose to tw why and when asked pt states "the why is not important". Pt reports that he later arrived at [facility] and spoke with Clifford Nicoleon; pt again will not disclose what this conversation entailed. Pt reports that he told several people "have a good day and I went back to my room and now I am here". Pt also looked over all the notes tw was writing due to paranoia. Pt is having a difficult time relaxing and in turn either stands at the door or sits on the very edge of the bed. Pt reports that he did nothing to het here and that people are just out to get him. Pt denies SI/HI/Self Inj/AH/VH. Pt reports having a good appetite and sleep. Captain Florez whom is a nurse on pts current [place] unit reports that pt recently moved from another unit to this unit. Gautam states that pt was very religiously pr eoccupied in other unit and had many red flags therefore; pt was switched to a more controlled environment. Gautam also report that the has diagnosed him with psychosis however; tw has no other information regarding this diagnosis. Gautam states that earlier today pt had been pushing his limits had gone to [facility] and was disheveled, unshaven and hair was not at the required length. Gautam reports that after formation pt went back to the unit and started making comments that were threatening in nature saying to his [employer] Sgt "I just want to end you". Per Gautam pt proceeded down the [facility] where all the nurses were and stated "I just want to end this all. I hope you all have a nice weekend it was nice knowing you". Nabil Gautam pt then eloped from the unit running and was later tackled by law enforcement. Pt had denied what he said and now believes he is at [facility] because, he told people to "have a nice weekend". Clifford Garrison called tw and reports that she has been worried that this pt is decompensating. Bladimir reports that there haven several red flags in the last few days and that paranoia is on the top of the list. Bladimir reports that pt is convinced that Sgt Kilgore is out to get him and is mad because, he hasn't shaved or cut his hair for formation. Bladimir reports that he did not fill the prescription from the last visit at [facility] therefore he has not been compliant with his medications." VITAL SIGNS: See below. CURRENT MEDICATIONS: See below. MENTAL STATUS EXAMINATION: Patient is a 20 -year-old Single Active Duty , , male, who was brought to [facility] for a MHE by [place] [employer] after pt began making suicidal statements and threatening to kill KAREN. Speech: Is normal rate, soft tone, low volume, monotone Language skills are intact Thought processes including: linear, goal oriented Thought content: Denies depression, anxiety and SI Abstract reasoning, and computation: fair. Description of associations: denies, repetitive, appears preoccupied with altruistic views Description of abnormal or psychotic thoughts: paranoid Judgment: poor Insight: poor Orientation: alert and oriented to person place and time Recent and remote memory: intact Attention span and concentration: fair Language: expansive Fund of knowledge: average Mood: superficial and reports euthymia Affect: constricted DIAGNOSES: 1. Unspecified psychotic disorder ASSESSMENT: Patient is seen today, appears constricted. Appears to be preoccupied about wanting "to help the community, wants a better future, he cares for the community and want to part of bigger cause" Reports that he is very loyal to the [employer] and recites the values of the [place]. Denies suicidal ideation but leading up to the hospitalization he denies he is a threat to himself and others. MANAGEMENT PLAN: Continue all medications as ordered TIME SPENT: 25 minutes. Vital Signs Vital Signs Date Time Temp Pulse Resp B/P (MAP) Pulse Ox O2 Delivery O2 Flow Rate FiO2 07/30/20 07:00 97.9 50 20 125/60 (81) 99 Room Air Current Medications Current Medications Medications (Trade) Dose Ordered Sig/Mariana Route PRN Reason Start Time Stop Time Status Last Admin Dose Admin Acetaminophen (Tylenol Tab) 650 mg Q6HP PRN PO HEADACHE or DISCOMFORT 07/27/20 16:20 Al Hydrox/Mg Hydrox/Simethicone (Mylanta) 30 ml Q4HP PRN PO HEARTBURN/INDIGESTION 07/27/20 16:20 Home Med (Med Rec Complete!) ASDIRECTED XX 07/27/20 18:00 07/27/20 17:57 DC Magnesium Hydroxide (Milk Of Magnesia) 30 ml DAILYPRN PRN PO CONSTIPATION 07/27/20 16:20 Nicotine (Nicoderm Cq 21mg) 1 patch DAILY TD 07/27/20 16:30 07/29/20 09:48 DC 07/29/20 09:34 Olanzapine (ZyPREXA ZYDIS) 5 mg Q4HP PRN PO AGITATION 07/27/20 16:20 07/30/20 13:33 Paliperidone (Invega) 3 mg QHS PO 07/27/20 21:00 07/27/20 20:44 Trazodone HCl (Desyrel) 50 mg QHSP PRN PO INSOMNIA 07/27/20 16:20 Allergies Coded Allergies: No Known Allergies (Verified Allergy, Unknown, 06/14/20) KAMI YOUNG NP July 30, 2020 14:07
[2020-07-30] MEDS: PALIPERIDONE 3 MG ER TAB (INVEGA) PO SCH ×2 (21:00→21:35)
[2020-07-31 06:43] VITALS: BP 131/59
[2020-07-31] MEDS ORDERED: LORazepam 2 MG TAB PO ONE (11:15)
[2020-07-31] MEDS ORDERED: LORazepam 1 MG TAB PO PRN (14:20)
[2020-07-31] MEDS ORDERED: haloperidoL 5 MG TAB PO PRN (14:20)
--- NOTE | 2020-07-31 14:36 | MHIPNPDOC ---
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 According to ED reports: "When pt first arrived at [facility] he asked the security aide if the cameras were brain scanners. Pt also was unable to give a urine sample and in turn was very focused on drinking water. Pt probably drank roughly 1/2 gallon of water to give one urine sample. Once pt gave a urine sample pt stopped obsessing over water. Pt seems to be very paranoid and guarded with his answers. Pt is very difficult to follow and talks in circles. Pt reports that earlier today he missed [facility], would not disclose to tw why and when asked pt states "the why is not important". Pt reports that he later arrived at [facility] and spoke with Clifford Nicoleon; pt again will not disclose what this conversation entailed. Pt reports that he told several people "have a good day and I went back to my room and now I am here". Pt also looked over all the notes tw was writing due to paranoia. Pt is having a difficult time relaxing and in turn either stands at the door or sits on the very edge of the bed. Pt reports that he did nothing to het here and that people are just out to get him. Pt denies SI/HI/Self Inj/AH/VH. Pt reports having a good appetite and sleep. Captain Florez whom is a nurse on pts current [place] unit reports that pt recently moved from another unit to this unit. Gautam states that pt was very religiously pr eoccupied in other unit and had many red flags therefore; pt was switched to a more controlled environment. Gautam also report that the has diagnosed him with psychosis however; tw has no other information regarding this diagnosis. Gautam states that earlier today pt had been pushing his limits had gone to [facility] and was disheveled, unshaven and hair was not at the required length. Gautam reports that after formation pt went back to the unit and started making comments that were threatening in nature saying to his [employer] Sgt "I just want to end you". Per Gautam pt proceeded down the mitchell where all the nurses were and stated "I just want to end this all. I hope you all have a nice weekend it was nice knowing you". Nabil Gautam pt then eloped from the unit running and was later tackled by law enforcement. Pt had denied what he said and now believes he is at [facility] because, he told people to "have a nice weekend". Clifford Garrison called tw and reports that she has been worried that this pt is decompensating. Bladimir reports that there haven several red flags in the last few days and that paranoia is on the top of the list. Bladimir reports that pt is convinced that Sgt Kilgore is out to get him and is mad because, he hasn't shaved or cut his hair for formation. Bladimir reports that he did not fill the prescription from the last visit at [facility] therefore he has not been compliant with his medications." VITAL SIGNS: See below. CURRENT MEDICATIONS: See below. 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 Speech: Is normal rate, soft tone, low volume, monotone Language skills are intact Thought processes including: linear, goal oriented Thought content: Denies depression, anxiety and SI Abstract reasoning, and computation: fair. Description of associations: denies, repetitive, appears preoccupied with altruistic views Description of abnormal or psychotic thoughts: mildly paranoid Judgment: improving Insight: improving Orientation: alert and oriented to person place and time Recent and remote memory: intact Attention span and concentration: fair Language: expansive Fund of knowledge: average Mood: superficial and reports euthymia Affect: constricted DIAGNOSES: 1. Unspecified psychotic disorder ASSESSMENT: Per RN patient was becoming very agitated, emergency oral medications were ordered. Reports that Haldol 5 mg and Ativan 2 mg helped "mellow him out" States that he wants to go back to work "to resolve the problems with leadership" reports that he had a misunderstanding with his [employer] and hopes that he can resolve it. When the provider brought up the statements that he had made, threats and other statements, he denies that he stated these and he reports that its "misunderstanding" He denies depression and anxiety, denies SI/HI, denies being paranoid. Per staff are reporting that he has made statements about sinister forces and that he was judaism preoccupations, he states "I didn't make any statements like that." He is focused on discharge. He remains very superficial and maintaining composure, not revealing any psychotic symptoms although appears very paranoid and guarded. When reviewed with him that he had been missing formation and not attending to his hair length, he stated "I don't think it's a problem." His insight and judgment was poor at times but overall improving. He minimizes statements and denies judaism preoccupations. MANAGEMENT PLAN: Continue all medications as ordered. Patient had a dose of Haldol 5 mg and Ativan 1 mg po at 1121. TIME SPENT: 25 minutes. Vital Signs Vital Signs Date Time Temp Pulse Resp B/P (MAP) Pulse Ox O2 Delivery O2 Flow Rate FiO2 07/31/20 06:43 98.9 53 18 131/59 (83) 99 Room Air Current Medications Current Medications Medications (Trade) Dose Ordered Sig/Mariana Route PRN Reason Start Time Stop Time Status Last Admin Dose Admin Acetaminophen (Tylenol Tab) 650 mg Q6HP PRN PO HEADACHE or DISCOMFORT 07/27/20 16:20 Al Hydrox/Mg Hydrox/Simethicone (Mylanta) 30 ml Q4HP PRN PO HEARTBURN/INDIGESTION 07/27/20 16:20 Haloperidol (Haldol) 5 mg BID PO 07/31/20 21:00 UNV Haloperidol (Haldol) 5 mg Q6HP PRN PO AGITATION 07/31/20 14:20 UNV Home Med (Med Rec Complete!) ASDIRECTED XX 07/27/20 18:00 07/27/20 17:57 DC Lorazepam (Ativan) 1 mg Q6HP PRN PO ANXIETY/AGITATION 07/31/20 14:20 UNV Magnesium Hydroxide (Milk Of Magnesia) 30 ml DAILYPRN PRN PO CONSTIPATION 07/27/20 16:20 Nicotine (Nicoderm Cq 21mg) 1 patch DAILY TD 07/27/20 16:30 07/29/20 09:48 DC 07/29/20 09:34 Olanzapine (ZyPREXA ZYDIS) 5 mg Q4HP PRN PO AGITATION 07/27/20 16:20 07/30/20 13:33 Paliperidone (Invega) 3 mg QHS PO 07/27/20 21:00 07/31/20 14:21 DC 07/30/20 21:35 Trazodone HCl (Desyrel) 50 mg QHSP PRN PO INSOMNIA 07/27/20 16:20 Allergies Coded Allergies: No Known Allergies (Verified Allergy, Unknown, 06/14/20) KAMI YOUNG NP July 31, 2020 14:22
[2020-07-31] MEDS: haloperidoL 5 MG TAB PO SCH (20:51)
[2020-07-31] MEDS: traZODone 50 MG TAB PO PRN (20:52)
[2020-07-31 21:06] VITALS: BP 126/66
[2020-08-01 06:16] VITALS: BP 138/56
[2020-08-01] MEDS: haloperidoL 5 MG TAB PO SCH (08:59)
--- NOTE | 2020-08-01 13:26 | MHIPNPDOC ---
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 According to ED reports: "When pt first arrived at [facility] he asked the security aide if the cameras were brain scanners. Pt also was unable to give a urine sample and in turn was very focused on drinking water. Pt probably drank roughly 1/2 gallon of water to give one urine sample. Once pt gave a urine sample pt stopped obsessing over water. Pt seems to be very paranoid and guarded with his answers. Pt is very difficult to follow and talks in circles. Pt reports that earlier today he missed [facility], would not disclose to tw why and when asked pt states "the why is not important". Pt reports that he later arrived at [facility] and spoke with Clifford Nicoleon; pt again will not disclose what this conversation entailed. Pt reports that he told several people "have a good day and I went back to my room and now I am here". Pt also looked over all the notes tw was writing due to paranoia. Pt is having a difficult time relaxing and in turn either stands at the door or sits on the very edge of the bed. Pt reports that he did nothing to het here and that people are just out to get him. Pt denies SI/HI/Self Inj/AH/VH. Pt reports having a good appetite and sleep. Captain Florez whom is a nurse on pts current [place] unit reports that pt recently moved from another unit to this unit. Gautam states that pt was very religiously pr eoccupied in other unit and had many red flags therefore; pt was switched to a more controlled environment. Gautam also report that the has diagnosed him with psychosis however; tw has no other information regarding this diagnosis. Gautam states that earlier today pt had been pushing his limits had gone to [facility] and was disheveled, unshaven and hair was not at the required length. Gautam reports that after formation pt went back to the unit and started making comments that were threatening in nature saying to his [employer] Sgt "I just want to end you". Per Gautam pt proceeded down the mitchell where all the nurses were and stated "I just want to end this all. I hope you all have a nice weekend it was nice knowing you". Nabil Florez pt then eloped from the unit running and was later tackled by law enforcement. Pt had denied what he said and now believes he is at [facility] because, he told people to "have a nice weekend". Clifford Garrison called tw and reports that she has been worried that this pt is decompensating. Bladimir reports that there haven several red flags in the last few days and that paranoia is on the top of the list. Bladimir reports that pt is convinced that Sgt Kilgore is out to get him and is mad because, he hasn't shaved or cut his hair for formation. Bladimir reports that he did not fill the prescription from the last visit at [facility] therefore he has not been compliant with his medications." VITAL SIGNS: See below. CURRENT MEDICATIONS: See below. 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 Speech: Is normal rate, soft tone, low volume, monotone Language skills are intact Thought processes including: linear, goal oriented Thought content: Denies depression, anxiety and SI Abstract reasoning, and computation: fair. Description of associations: denies, repetitive, appears preoccupied with altruistic views Description of abnormal or psychotic thoughts: mildly paranoid Judgment: improving Insight: improving Orientation: alert and oriented to person place and time Recent and remote memory: intact Attention span and concentration: fair Language: expansive Fund of knowledge: average Mood: superficial and reports euthymia Affect: constricted DIAGNOSES: 1. Unspecified psychotic disorder ASSESSMENT: Patient is seen today, he is unkempt and disheveled. His hair is unkempt. He makes better eye contact. He reports no depression, anxiety, denies thoughts of self harm to self or others. When asked to recount his reason for admission "It was a big misunderstanding with my Sergeant. All I said was have a good weekend and then the MPs were there." He denies that he made any statements that would have resulted in his involuntary admission. "They came to my room, I was talking to my parents, they asked if I was ok, and ten minutes later I was handcuffed and brought here." He reports that it was another misunderstanding that brought him to the hospital on his last admission. Reinforced with patient that he is showing poor insight when he cannot recall why he was admitted. He admits that he may have made suicidal statements. Today he states, "I will never hurt myself, I will never hurt myself, I will never hurt myself or others." States that he was a "bit off on the first day of admission but is now stable today and he is requesting discharge. Patient may be discharged tomorrow. He minimizes many symptoms and is observed to have fair to poor insight at times but he has a normal mentation and may have internal stimuli that he is not reporting. He appears to have some mild prodromal symptoms: limited range of emotions, repetitive sentences, social isolation at times, belief in his superiority, some grandiosity with regards to [employer] work "I want to help people", and neglecting personal hygiene. Although this may be early symptoms of Schizophrenia disorder, there is not any grave concern at this time that he is a danger to himself or others. MANAGEMENT PLAN: Continue all medications as ordered. Discharge to [facility] tomorrow. TIME SPENT: 25 minutes. Vital Signs Vital Signs Date Time Temp Pulse Resp B/P (MAP) Pulse Ox O2 Delivery O2 Flow Rate FiO2 08/01/20 06:16 98.8 88 18 138/56 (83) 100 Room Air Current Medications Current Medications Medications (Trade) Dose Ordered Sig/Mariana Route PRN Reason Start Time Stop Time Status Last Admin Dose Admin Acetaminophen (Tylenol Tab) 650 mg Q6HP PRN PO HEADACHE or DISCOMFORT 07/27/20 16:20 Al Hydrox/Mg Hydrox/Simethicone (Mylanta) 30 ml Q4HP PRN PO HEARTBURN/INDIGESTION 07/27/20 16:20 Haloperidol (Haldol) 5 mg BID PO 07/31/20 21:00 07/31/20 20:51 Haloperidol (Haldol) 5 mg Q6HP PRN PO AGITATION 07/31/20 14:20 Home Med (Med Rec Complete!) ASDIRECTED XX 07/27/20 18:00 07/27/20 17:57 DC Lorazepam (Ativan) 1 mg Q6HP PRN PO ANXIETY/AGITATION 07/31/20 14:20 07/31/20 20:51 Magnesium Hydroxide (Milk Of Magnesia) 30 ml DAILYPRN PRN PO CONSTIPATION 07/27/20 16:20 Nicotine (Nicoderm Cq 21mg) 1 patch DAILY TD 07/27/20 16:30 07/29/20 09:48 DC 07/29/20 09:34 Olanzapine (ZyPREXA ZYDIS) 5 mg Q4HP PRN PO AGITATION 07/27/20 16:20 07/30/20 13:33 Paliperidone (Invega) 3 mg QHS PO 07/27/20 21:00 07/31/20 14:21 DC 07/30/20 21:35 Trazodone HCl (Desyrel) 50 mg QHSP PRN PO INSOMNIA 07/27/20 16:20 07/31/20 20:52 Allergies Coded Allergies: No Known Allergies (Verified Allergy, Unknown, 06/14/20) KAMI YOUGN NP August 01, 2020 08:03
[2020-08-01] MEDS ORDERED: HALO10TA20 PO (17:01)
[2020-08-01] MEDS: traZODone 50 MG TAB PO PRN (21:17)
[2020-08-02 06:14] VITALS: BP 118/56
--- NOTE | 2020-08-02 12:26 | MHDSPDOC ---
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 According to ED reports: "When pt first arrived at [facility] he asked the security aide if the cameras were brain scanners. Pt also was unable to give a urine sample and in turn was very focused on drinking water. Pt probably drank roughly 1/2 gallon of water to give one urine sample. Once pt gave a urine sample pt stopped obsessing over water. Pt seems to be very paranoid and guarded with his answers. Pt is very difficult to follow and talks in circles. Pt reports that earlier today he missed [facility], would not disclose to tw why and when asked pt states "the why is not important". Pt reports that he later arrived at [facility] and spoke with Clifford Garrison; pt again will not disclose what this conversation entailed. Pt reports that he told several people "have a good day and I went back to my room and now I am here". Pt also looked over all the notes tw was writing due to paranoia. Pt is having a difficult time relaxing and in turn either stands at the door or sits on the very edge of the bed. Pt reports that he did nothing to het here and that people are just out to get him. Pt denies SI/HI/Self Inj/AH/VH. Pt reports having a good appetite and sleep. Captain Florez whom is a nurse on pts current [place] unit reports that pt recently moved from another unit to this unit. Gautam states that pt was very religiously preoccupied in other unit and had many red flags therefore; pt was switched to a more controlled environment. Gautam also report that the has diagnosed him with psychosis however; tw has no other information regarding this diagnosis. Gautam states that earlier today pt had been pushing his limits had gone to [facility] and was disheveled, unshaven and hair was not at the required length. Gautam reports that after formation pt went back to the unit and started making comments that were threatening in nature saying to his [employer] Sgt "I just want to end you". Per Gautam pt proceeded down the mitchell where all the nurses were and stated "I just want to end this all. I hope you all have a nice weekend it was nice knowing you". Nabil Florez pt then eloped from the unit running and was later tackled by law enforcement. Pt had denied what he said and now believes he is at [facility] because, he told people to "have a nice weekend". Clifford Garrison called tw and reports that she has been worried that this pt is decompensating. Bladimir reports that there haven several red flags in the last few days and that paranoia is on the top of the list. Bladimir reports that pt is convinced that Sgt Kilgore is out to get him and is mad because, he hasn't shaved or cut his hair for formation. Bladimir reports that he did not fill the prescription from the last visit at [facility] therefore he has not been compliant with his medications." VITAL SIGNS: See below. 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 He was started on on Risperdal and was disengaged with treatment, neglecting his ADL's and was getting agitated. He was given Haldol and lorazepam as emergency for his agitation. He reported that he was thinking more clearly after being medicated. He was then started on Haldol 10mg BID. He continued to report that he was thinking more clearly on Haldol. He was observed to be more engaged with his treatment, was attending therapy and was observed to be interacting with some peers. When asked to recount his reason for admission "It was a big misunderstanding with my Sergeant. All I said was have a good weekend and then the MPs were there." He denies that he made any statements that would have resulted in his involuntary admission. "They came to my room, I was talking to my parents, they asked if I was ok, and ten minutes later I was handcuffed and brought here." He reports that it was another misunderstanding that brought him to the hospital on his last admission. Reinforced with patient that he is showing poor insight when he cannot recall why he was admitted. He admits that he may have made suicidal statements.Stated that, "I will never hurt myself, I will never hurt myself, I will never hurt myself or others." States that he was a "bit off on the first day of admission but is now stable today and he is requesting discharge. He has continued to minimizes many symptoms and is observed to have fair to poor insight at times but he has a normal mentation and may have internal stimuli that he is not reporting. He appears to have some mild prodromal symptoms: limited range of emotions, repetitive sentences, social isolation at times, belief in his superiority, some grandiosity with regards to [employer] work "I want to help people", and neglecting personal hygiene. Although this may be early symptoms of Schizophrenia disorder, there is not any grave concern at this time that he is a danger to himself or others. Extensive psychoeducation was given to patient in regards to all the risks, benefits of treatment and he vocalized full understanding. We reinforced with him the importance of continuing to take his medications after discharge. Educated patient on Psychotic Symptoms. He listened attentively and asked relevant questions about Schizophrenia - like the signs of symptoms and causes. Encou raged to continue all his medications and treatment to reduce the acute/chronic conditions of psychotic disorders. He states that he is ready to be discharged. 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 Denies SI. Denies HI/AV/VH. DISCHARGE ASSESSMENT: In today's interview, patient is alert and oriented, he is dressed in hospital clothing. Denies depression and anxiety. Denies suicidal and homicidal ideation, planning or intent. Denies and is not observed with zuleyma, psychotic symptoms of delusions, bizarre thinking, obsessions, paranoia, ruminations illogical thoughts, flight of ideas or having poor insight and judgement. Patient has normal mentation, declines further hospitalization on a voluntary status and meets criteria for discharge today. Patient encouraged to return to hospital if symptoms worsen or change and encouraged to call unit if he/she/they needs to speak to provider for questions regarding medications or care. 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 Speech: Is fluid, conversant, normal rate, tone and volume Language skills are intact Thought processes including: linear and goal oriented Thought content: denies depression and anxiety. Denies suicidal/homicidal ideation, planning or intent. Abstract reasoning, and computation: fair Description of associations: denies, none observed Description of abnormal or psychotic thoughts: denies, none observed. Judgment: fair Insight: fair Orientation: alert and oriented to person, place, time and situation Recent and remote memory: intact Attention span and concentration: good Language: expansive Fund of knowledge: average Mood: Euthymic Mood Affect: reactive MEDICATIONS ON DISCHARGE: See Medication Reconciliation PLAN/FOLLOWUP ARRANGEMENTS: Follow up with [facility] The amount of time spent in the coordination of care for this patient was approximately 25 minutes. ETOH/Disorder Med Rx ETOH/DRUG DISORDER RX: N/A Vital Signs/I&Os Vital Signs Date Time Temp Pulse Resp B/P (MAP) Pulse Ox O2 Delivery O2 Flow Rate FiO2 08/02/20 06:14 98.5 48 20 118/56 (76) 98 Room Air Medications Scheduled Haloperidol (Haloperidol) 10 Mg Tablet, 10 MG PO BID for nausea/vomiting for 30 Days, #60 Allergies Coded Allergies: No Known Allergies (Verified Allergy, Unknown, 06/14/20) KAMI YOUNG NP August 02, 2020 12:26
== END 2020-08-02 10:30 | disposition home or self-care (01) | DRG 885 ==
LOC: M ED 11:53 → M ED INP 16:17 → M PSY 18:27
PROVIDERS: ADMIT Psychiatry & Neurology Psychiatry; ATTEND Psychiatry & Neurology Psychiatry
DX: F29 Unspecified psychosis not due to a substance or known physiological condition (principal); R45.851 Suicidal ideations; Z20.822 Contact with and (suspected) exposure to COVID-19; R45.850 Homicidal ideations; F17.210 Nicotine dependence, cigarettes, uncomplicated; Z91.14 Patient's other noncompliance with medication regimen